=== PATIENT | female | born 1980 | race African-American/Black ===

== ENCOUNTER 2019-09-01 07:49 | Emergency (ER) | payer SELFPAY ==
[~2019-09-01] VITALS: Ht 165.1 cm; Wt 95.0 kg
[2019-09-01 09:00] VITALS: BP 135/83
== END 2019-09-01 09:44 | disposition left against medical advice (07) ==
LOC: ER 08:22
DX: M54.2 Cervicalgia (principal); X58.XXXA Exposure to other specified factors, initial encounter; Y93.89 Activity, other specified; Y92.9 Unspecified place or not applicable
CPT/HCPCS: 99281; Z7610

== ENCOUNTER 2022-07-18 08:40 | Emergency (ER) | payer BC, MEDICAID ==
[~2022-07-18] VITALS: Ht 165.1 cm; Wt 116.0 kg
[2022-07-18 08:51] VITALS: BP 125/89
== END 2022-07-18 10:00 | disposition home or self-care (01) ==
LOC: ER 08:40
DX: G93.89 Other specified disorders of brain (principal); Z59.00 Homelessness unspecified
CPT/HCPCS: 99281